=== PATIENT | female | born 1955 | race Caucasian/White ===

== ENCOUNTER 2023-11-05 08:35 | Day surgery (SDC) | payer OTHER ==
[2023-10-30 14:25] VITALS: BMI 22.8
[~2023-11-05 08:35] MED LIST: LACTATED RINGERS 1,000 ML IV SCH; LIDOCAINE 1% (10MG/ML) FOR IV START INTRADERMA PRN
[2023-11-05] MEDS ORDERED: SODIUM CHLORIDE 0.9% 1,000 ML IV ONE (09:10)
[2023-11-05 09:35] LABS: Basophils # (A) 0.1 k/uL (0-0.2); Basophils % (A) 0 %; Eosinophils # (A) 0.1 k/uL (0-0.7); Eosinophils % (A) 1 %; HCT 44.5 % (34.0-46.0); HGB 14.8 gm/dL (11.4-16.0); Lymphocytes # (A) 1.9 k/uL (1.0-4.8); Lymphocytes % (A) 17 %; MCH 31.9 pg (25.0-35.0); MCHC 33.2 g/dL (31.0-37.0); MCV 95.9 fL (80.0-100.0); Mean Platelet Volume 7.6; Monocytes # (A) 0.5 k/uL (0-1.0); Monocytes % (A) 4 %; Neutrophils # (A) 8.7 k/uL (1.3-7.7); Neutrophils % (A) 77 %; Platelet Count 277 k/uL (150-450); RBC 4.64 m/uL (3.80-5.40); RDW 12.7 % (11.5-15.5); WBC 11.4 k/uL (3.8-10.6)
[2023-11-05 10:23] LABS: ALT 35 U/L (4-34); AST 40 U/L (14-36); African American GFR (CKD) >90 (>60 ml/min/1.73 sqM); Albumin 4.9 g/dL (3.5-5.0); Alkaline Phosphatase 105 U/L (38-126); Anion Gap 18 mmol/L; Blood Urea Nitrogen 11 mg/dL (7-17); Calcium 10.3 mg/dL (8.4-10.2); Carbon Dioxide 18 mmol/L (22-30); Chloride 105 mmol/L (98-107); Glucose 128 mg/dL (74-99); Non-African American GFR(CKD) >90 (>60 ml/min/1.73 sqM); Potassium 4.5 mmol/L (3.5-5.1); Sodium 141 mmol/L (137-145); Total Bilirubin 0.8 mg/dL (0.2-1.3); Total Protein 8.4 g/dL (6.3-8.2)
[2023-11-05] MEDS ORDERED: LIDOCAINE 1% INJ 10MG/ML (20 ML MDV) ONE ×2 (11:14→11:30)
[2023-11-05] MEDS ORDERED: LIDOCAINE 1% INJ 10MG/ML (20 ML MDV) SQ ONE (11:28)
[2023-11-05] MEDS ORDERED: HEPARIN SODIUM (1,000 UNIT/ML) 1,000 UNIT in SODIUM CHLORIDE 0.9% 1,000 ML IRRIGATION ONE (11:45)
[2023-11-05] MEDS ORDERED: LACTATED RINGERS 1,000 ML IV ONE ×2 (12:28)
[2023-11-05] MEDS ORDERED: ACETAMINOPHEN TAB 325 MG TAB PO PRN (14:17)
[2023-11-05] MEDS ORDERED: ACETAMINOPHEN IV (For NPO) 1,000 MG in EMPTY BAG 1 BAG IVPB ONE (14:17)
--- NOTE | 2023-11-05 14:22 | P.HPCAR ---
History of Present Illness This is Dr. Mena dictating an H/P on this patient The patient was interviewed and examined IMPRESSION / ASSESSMENT: Recurrent SVT and palpitations associated with presyncope Regular and he continues Dyslipidemia, on atorvastatin PLAN: Diagnoses EP study and possible urinary frequency ablation HPI Patient continues to have palpitations. This is occurring despite medical treatment She is lightheaded and presyncopal and feels hot and flushed during these episodes ROS: No fever chills or rigors, no cough, phlegm or expectoration, no nausea, vomiting or diarrhea, no hematuria, dysuria, no musculoskeletal complaints, no strokes or seizures, no skin lesions. EXAMINATION: 150/81 mmHg Pulse rate 96 Afebrile Breath sounds are reduced bilaterally but there are no rhonchi no crackles Heart sounds S1-S2 are normal Abdomen is soft Extremities warm no edema REVIEW OF LABS, ECG & MEDICAL DATA White count 11,000, hemoglobin 14 Sodium normal Electrolytes normal TSH 1.5 Physical Exam Vitals: Vital Signs Temp Pulse Resp BP Pulse Ox 11/05/23 09:26 98 F 96 16 150/81 98 Intake and Output 11/04/23 11/05/23 11/05/23 22:59 06:59 14:59 Intake Total 628 Balance 628 Intake: IV 628 Other: Weight 60.5 kg Past Medical History Past Medical History: Hyperlipidemia, Supraventricular Tachycardia (SVT) History of Any Multi-Drug Resistant Organisms: None Reported Additional Past Surgical History / Comment(s): ORAL SURGERY Past Anesthesia/Blood Transfusion Reactions: No Reported Reaction Smoking Status: Current every day smoker - Past Family History Mother Family Medical History: No Reported History Physical Examination Vital Signs Temp Pulse Resp BP Pulse Ox 11/05/23 09:26 98 F 96 16 150/81 98 Intake and Output 11/04/23 11/05/23 11/05/23 22:59 06:59 14:59 Intake Total 628 Balance 628 Intake: IV 628 Other: Weight 60.5 kg Results 11/05/23 09:07 11/05/23 09:07 Cardiac Enzymes 11/05/23 Range/Units 09:07 AST 40 H (14-36) U/L CBC 11/05/23 Range/Units 09:07 WBC 11.4 H (3.8-10.6) k/uL RBC 4.64 (3.80-5.40) m/uL Hgb 14.8 (11.4-16.0) gm/dL Hct 44.5 (34.0-46.0) % Plt Count 277 (150-450) k/uL Comprehensive Metabolic Panel 11/05/23 Range/Units 09:07 Sodium 141 (137-145) mmol/L Potassium 4.5 (3.5-5.1) mmol/L Chloride 105 (98-107) mmol/L Carbon Dioxide 18 L (22-30) mmol/L BUN 11 (7-17) mg/dL Creatinine 0.57 (0.52-1.04) mg/dL Glucose 128 H (74-99) mg/dL Calcium 10.3 H (8.4-10.2) mg/dL AST 40 H (14-36) U/L ALT 35 H (4-34) U/L Alkaline Phosphatase 105 (38-126) U/L Total Protein 8.4 H (6.3-8.2) g/dL Albumin 4.9 (3.5-5.0) g/dL Current Medications Generic Name Dose Route Start Last Admin Trade Name Freq PRN Reason Stop Dose Admin Acetaminophen 650 mg 11/05/23 14:17 Acetaminophen Tab 325 Mg Tab PO Q6HR PRN Mild Pain (Scale 1 to 3) Aspirin 81 mg 11/06/23 09:00 Aspirin 81 Mg PO DAILY [facility] Atorvastatin Calcium 40 mg 11/05/23 21:00 Atorvastatin 40 Mg Tab PO HS [facility] Buspirone HCl 10 mg 11/05/23 21:00 Buspirone Hcl 10 Mg Tab PO BID NATHAN Sodium Chloride 1,000 mls @ 20 mls/hr 11/05/23 05:49 Saline 0.9% IV 12/05/23 05:50 .Q24H NATHAN Acetaminophen 1,000 mg/ IV 100 mls @ 400 mls/hr 11/05/23 14:17 Solution IVPB 11/05/23 14:31 ONCE ONE Lidocaine HCl 0.1 ml 11/05/23 05:49 Lidocaine 1% (10mg/Ml) For Iv Start INTRADERMA 12/05/23 05:50 PER PROTOCOL PRN IV Start Melatonin 10 mg 11/05/23 21:00 Melatonin 5 Mg Tablet PO HS [facility] Metoprolol Tartrate 25 mg 11/05/23 21:00 Metoprolol Tartrate 25 Mg Tab PO BID NATHAN Sodium Chloride 12 ml 11/05/23 14:17 Sodium Chloride 0.9% Flush 10 Ml Syringe IV Q12HR PRN Line Flush Intake and Output 11/04/23 11/05/23 11/05/23 22:59 06:59 14:59 Intake Total 628 Balance 628 Intake: IV 628 Other: Weight 60.5 kg Patient Weight 11/06/23 06:59 Weight 60.5 kg 11/05/23 09:07 11/05/23 09:07
--- NOTE | 2023-11-05 14:36 | P.EPPROC ---
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 Written informed consent was obtained prior to the procedure. Venous sheaths were placed in the right and left femoral veins under sterile precautions Diagnostic cath was positioned in the high right atrium, His bundle area, coronary sinus and RV Baseline measurements were normal Sinus cycle length 656 ms, HI interval 131 ms, QRS 112 ms and QT interval 367 ms With catheter manipulation right bundle branch block pattern was induced AH 52 ms and HV interval 48 ms Sinus node recovery times at 504 100 ms were 950 and 868 ms Dir. sinus node recovery times were within normal limits AV node Wenckebach block 360 ms VA Wenckebach block 250 ms No evidence for accessory pathway conduction No evidence for slow pathway conduction with straight pacing Parahisian pacing resulted in the rajiv response With atrial extra stimulation, double extrastimuli from the high right atrium SVT was induced Cycle length was about 330 ms VAAV response Long PPI Very short septal times of less than 30 ms Consistent with AV rajiv reentry A long sheath was placed, an irrigated tip catheter was placed Slow pathway was mapped His bundle and the coronary sinus overtime RF ablation was applied and slow pathway area and junctional rhythm was obtained Following that off and on high-dose Isuprel no SVT was induced There was no evidence for slow pathway conduction No evidence for AV rajiv reentry. High right atrium, Donald sinus and RV pacing and access stimulation Catheters were removed. As the catheters will be removed the patient and to the tachycardia with a right bundle branch block morphology This for cath was still in situ and there was a spike before every QRS Looking at the QRS morphology, this was similar to the baseline QRS morphology for right bundle-branch block that had been mechanically induced line the cycle length was very short about 260 ms This is consistent with an atrial tachycardia but this is never been induced during high-dose Isuprel as well as during atrial and ventricular pacing Electrical cardioversion was performed to sinus Patient tolerated the procedure well without acute complications
[2023-11-05] MEDS: SODIUM CHLORIDE 0.9% 1,000 ML IV SCH (15:19)
[2023-11-05] MEDS ORDERED: HYDROcodone/APAP 5-325MG 1 EACH TAB PO PRN (17:10)
[2023-11-05] MEDS: NICOTINE 14MG/24HR PATCH TRANSDERM SCH (17:16)
--- NOTE | 2023-11-05 17:48 | P.PRLE ---
RE: Mimi Mohr Dear Coco Le underwent a diagnostic EP study which revealed AV rajiv reentry and she underwent successful slow pathway ablation She will continue current medications without any changes for now Thank you for entrusting me with the care of the patient Warm regards Sincerely Pacheco Mena
[2023-11-05] MEDS ORDERED: MELATONIN 5 MG TABLET PO SCH (21:00)
[2023-11-05] MEDS ORDERED: ATORVASTATIN 40 MG TAB PO SCH (21:00)
[2023-11-05] MEDS: FLUTICASONE 50MCG/SPRAY NASAL 16GM EA NOSTRIL SCH (22:42)
[2023-11-05] MEDS: busPIRone HCl 10 MG TAB PO SCH (22:44)
[2023-11-05] MEDS: METOPROLOL TARTRATE 25 MG TAB PO SCH (22:44)
[2023-11-06 03:25] VITALS: BP 116/77; PULSE 90; RESP 14; TEMP 99.2
[2023-11-06] MEDS: SODIUM CHLORIDE 0.9% 1,000 ML IV SCH (06:08)
[2023-11-06] MEDS: busPIRone HCl 10 MG TAB PO SCH (08:48)
[2023-11-06] MEDS: FLUTICASONE 50MCG/SPRAY NASAL 16GM EA NOSTRIL SCH (08:48)
[2023-11-06] MEDS: METOPROLOL TARTRATE 25 MG TAB PO SCH (08:48)
[2023-11-06] MEDS: NICOTINE 14MG/24HR PATCH TRANSDERM SCH (08:48)
[2023-11-06] MEDS ORDERED: ASPIRIN 81 MG PO SCH (09:00)
--- NOTE | 2023-11-06 12:57 | P.DS ---
Providers Attending physician: Pacheco Mena Primary care physician: [facility] Course: Patient is doing well. No chest discomfort dizziness or lightheadedness Heart sounds are normal normal S1 normal S2 Breath sounds are clear no rhonchi no crackles Groins of healed well, no hematoma Blood pressure 116/77 mmHg pulse rate in the 80s and 90s afebrile Impression AV rajiv reentry status post slow pathway ablation After the end of the EP study the patient went to an atrial tachycardia with RVR requiring electrical cardioversion No atrial tachycardia could be induced during the EP study Suggest Continue beta blockers Continue monitoring for any further palpitations Continue current medications Discharge home today Patient Condition at Discharge: Good Plan - Discharge Summary Discharge Rx Participant: No New Discharge Prescriptions: No Action Aspirin EC [Ecotrin Low Dose] 81 mg PO DAILY busPIRone HCL 10 mg PO BID Metoprolol Tartrate [Lopressor] 25 mg PO BID Atorvastatin [Lipitor] 40 mg PO HS Multivit-Min/Iron/Folic/Lutein [Centrum Silver Women Tablet] 1 each PO DAILY Melatonin 10 mg PO HS Discharge Medication List Aspirin EC [Ecotrin Low Dose] 81 mg PO DAILY 10/30/23 [History] Atorvastatin [Lipitor] 40 mg PO HS 10/30/23 [History] Melatonin 10 mg PO HS 10/30/23 [History] Metoprolol Tartrate [Lopressor] 25 mg PO BID 10/30/23 [History] Multivit-Min/Iron/Folic/Lutein [Centrum Silver Women Tablet] 1 each PO DAILY 10/30/23 [History] busPIRone HCL 10 mg PO BID 10/30/23 [History] Follow up Appointment(s)/Referral(s): Pacheco Mena MD [STAFF PHYSICIAN] - 11/19/23 11:00 am (Follow-up with Dr. Mena or primary hoof trimmer in 1-2 weeks) Patient Instructions/Handouts: Supraventricular Tachycardia (DC), Cardiac Ablation (DC) Activity/Diet/Wound Care/Special Instructions: Post EP study - Ablation instructions 1. Keep access sites dry for 2 days. 2. No heavy lifting or straining for 2 days. 3. Avoid bending the hips repeatedly for 2 days. 4. You may go up and down stairs slowly Call if the following is noted 1. Bleeding, increasing swelling or pain at the access sites. 2. Increasing chest discomfort, especially upon taking a deep breath. 3. Increasing shortness of breath, at rest or with exertion. 4. Undue cough / phlegm 5. Difficulty or pain while swallowing. 6. Pain or change in color in the extremities. 7. Fever, chills, rigors. 8. Increasing headache or neurologic symptoms. 9. Dizziness, fainting, palpitations Continue same medications unchanged Discharge Disposition: HOME SELF-CARE
== END 2023-11-06 09:55 | disposition home or self-care (01) ==
LOC: CATHEP 08:35 → 6NMEDSUR 13:53 → CATHEP 11-06 09:55
PROVIDERS: ATTEND Internal Medicine Clinical Cardiac Electrophysiology
DX: I47.10 Supraventricular tachycardia, unspecified (principal); E78.5 Hyperlipidemia, unspecified; I47.19 Other supraventricular tachycardia; F17.200 Nicotine dependence, unspecified, uncomplicated; Z79.82 Long term (current) use of aspirin; Z79.899 Other long term (current) drug therapy
CPT/HCPCS: 93623; 93653; 86900; 86901; 80053; 84443; 85025; 86850; C1894; C1769; C1730 ×3; C1893; C1732; J2001; J1644; J0131